=== PATIENT | male | born 1970 | race Caucasian/White ===

== ENCOUNTER 2019-06-03 21:40 | Emergency (ER) | payer OTHER ==
[~2019-06-03] VITALS: Ht 175.3 cm; Wt 90.7 kg
[2019-06-03 22:10] LABS: BASO # 0.1 x10^3/uL (0.0-0.2); BASO % 1 % (0-3); EOS # 0.5 x10^3/uL (0.0-0.7); EOS % 5 % (0-3); HEMATOCRIT 47.8 % (39.0-53.0); HEMOGLOBIN 16.7 g/dL (13.0-17.5); LYMPH # 2.3 x10^3/uL (1.0-4.8); LYMPH % 26 % (24-48); MEAN CORPUSCULAR HEMOGLOBIN 32 pg (25-35); MEAN CORPUSCULAR HGB CONC 35 g/dL (31-37); MEAN CORPUSCULAR VOLUME 92 fL (79-100); MONO # 0.7 x10^3/uL (0.0-1.1); MONO % 8 % (0-9); NEUT # 5.1 x10^3/uL (1.8-7.7); NEUT % 59 % (31-73); PLATELET COUNT 264 x10^3/uL (140-400); RED BLOOD COUNT 5.19 x10^6/uL (4.30-5.70); RED CELL DISTRIBUTION WIDTH 13.8 % (11.5-14.5); WHITE BLOOD COUNT 8.6 x10^3/uL (4.0-11.0)
[2019-06-03 22:13] LABS: PROTHROMBIN TIME PATIENT 12.2 SEC (11.7-14.0)
[2019-06-03 22:15] LABS: CALCIUM 8.9 mg/dL (8.5-10.1); GFR 80.1; POTASSIUM 3.3 mmol/L (3.5-5.1)
[2019-06-03 22:20] LABS: ALBUMIN 3.9 g/dL (3.4-5.0); TOTAL BILIRUBIN 0.3 mg/dL (0.2-1.0); TOTAL PROTEIN 7.7 g/dL (6.4-8.2)
[2019-06-03] MEDS ORDERED: fentaNYL PF VIAL 100 MCG/2 ML VIAL IV ONE (22:30)
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
--- NOTE | 2019-06-03 22:33 | RAD ---
PROCEDURE: HAND RIGHT 3V, KNEE RIGHT 3V, ELBOW RIGHT 3V, PORTABLE CHEST 1V, SHOULDER 2+V RIGHT CLINICAL INDICATION: Trauma COMPARISON: None FINDINGS: No pneumothorax identified. Cardiac and mediastinal contours unremarkable. No pulmonary consolidation or acute airspace disease. No acute osseous abnormalities identified. IMPRESSION: No pulmonary consolidation or acute airspace disease. Indication:Trauma. TECHNIQUE: 3 views of the right shoulder COMPARISON:None FINDINGS/impression: No acute fracture or dislocation. Indication:Trauma TECHNIQUE: 3 views of the right knee COMPARISON:None FINDINGS/impression: No acute fracture or dislocation. No joint effusion. Indication:Trauma TECHNIQUE: 3 views of right hand COMPARISON: None FINDINGS: No acute fracture or dislocation. Indication:Trauma TECHNIQUE: 3 views of right elbow COMPARISON: None FINDINGS/impression: No acute fracture or dislocation. No joint effusion. Electronically signed by: hCintan Garcia DO (06/03/2019 10:30 PM) [facility]
--- NOTE | 2019-06-03 22:48 | RAD ---
CT MAXILLOFACIAL WO CONTRAST, CT HEAD AND CERVICAL SPINE WO dated 06/03/2019 10:19 PM Indication: Pain after injury. Head and neck pain. Comparison: No comparison is available. Technique: Contiguous axial imaging the head was performed from skull base to vertex. No contrast administered. In addition, axial imaging the maxillofacial bones cervical spine performed with thin cut coronal and sagittal reconstruction. One or more of the following individualized dose reduction techniques were utilized for this examination: 1. Automated exposure control 2. Adjustment of the mA and/or kV according to patient size 3. Use of iterative reconstruction technique Findings: Ventricles and sulci are within normal limits for age. No midline shift or mass effect. Brain parenchyma is of normal attenuation. No hemorrhage or extra-axial collection. Posterior fossa and brainstem unremarkable. Moderate mucosal thickening of the bilateral ethmoid air cells and frontal sinuses. Mild mucosal thickening of the maxillary sinuses. Mastoid air cells are clear. No apparent calvarial abnormality. No displaced facial fracture. The orbital younger and maxillary younger are intact. Zygomatic arches and mandible are intact. Bilateral nasal bones are grossly intact. Images of the cervical spine show normal sagittal alignment. Vertebral body heights are maintained. No prevertebral soft tissue swelling. Posterior elements are intact. No evidence of fracture. Mild endplate hypertrophic changes throughout with prominent uncovertebral spurring at C5-C6 and C6-C7. No apparent focal disc herniation. The bony canal and foramina are adequate. Visualized soft tissue structures unremarkable. There mildly enlarged bilateral cervical chain lymph nodes, nonspecific. Limited images of lung apices are clear. IMPRESSION: 1. No evidence of acute intracranial hemorrhage or mass. 2. No evidence of displaced facial fracture. 3. No evidence of cervical spine fracture or malalignment. 4. Mild to moderate sinus disease. 5. Mildly enlarged bilateral cervical chain lymph nodes, nonspecific. Electronically signed by: Jalen Pascal MD (06/03/2019 10:45 PM) [facility]
[2019-06-03 22:51] LABS: % BASOS 2 % (0-3); % EOS 3 % (0-5); % LYMPHS 22 % (24-48); % MONOS 8 % (0-10); % MYELOS 1 % (0-0); % SEGS 64 % (35-66)
[2019-06-03 22:53] LABS: PLT ESTIMATE ADEQUATE (ADEQUATE)
[2019-06-03] MEDS ORDERED: HYDR-3164 PO (23:05)
[2019-06-03 23:18] VITALS: BP 126/77
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
[2019-06-03] MEDS ORDERED: MORPHINE SULFATE 4 MG/ML VIAL. IV ONE (23:30)
[2019-06-03] MEDS ORDERED: ONDANSETRON PF 4 MG/2 ML VIAL. IV ONE (23:30)
== END 2019-06-03 23:25 | disposition home or self-care (01) ==
LOC: ER 21:40
DX: S01.111A Laceration without foreign body of right eyelid and periocular area, initial encounter (principal); R51 Headache; M25.511 Pain in right shoulder; R07.89 Other chest pain; M25.521 Pain in right elbow; M54.5 Low back pain; M79.604 Pain in right leg; G89.29 Other chronic pain; F10.20 Alcohol dependence, uncomplicated; Y90.5 Blood alcohol level of 100-119 mg/100 ml; V29.49XA Motorcycle driver injured in collision with other motor vehicles in traffic accident, initial encounter; Y92.488 Other paved roadways as the place of occurrence of the external cause; Y93.89 Activity, other specified; Y99.8 Other external cause status
CPT/HCPCS: 12011; 36415; 70450; 70486; 71045; 72125; 73030; 73080; 73130; 73562; 80053; 85007; 85025; 85610; 96374; 96375; 99285; G0480; J2270; J2405; J3010